=== PATIENT | male | born 1965 | race Caucasian/White ===

== ENCOUNTER 2020-03-31 11:11 | Inpatient (IN) | payer BC, OTHER ==
[~2020-03-31] VITALS: Ht 182.9 cm; Wt 93.6 kg
--- NOTE | 2020-03-31 11:21 | NUR ---
PT SITTING UP IN BED, BIB [facility] FOR INCREASED PAIN AND REDNESS TO OPEN SURGICAL WOUND ON LEFT POSTERIOR CALF. HOME HEALTH RN TOOK OFF WOUND VAC PRIOR TO TRANSPORT TO ED.
[2020-03-31] MEDS ORDERED: HYDROmorphone 1 MG/ML, 1ML INJ ONE ×2 (12:28→16:03)
[2020-03-31] MEDS: HYDROmorphone 1 MG/ML, 1ML INJ IVPush PRN ×2 (12:29→16:05)
[2020-03-31] MEDS ORDERED: SODIUM CHLORIDE FLUSH 10ML SYR IVF ONE (12:30)
--- NOTE | 2020-03-31 12:31 | NUR ---
IV START, LABS DRAWN, US AT BEDSIDE AT THIS TIME. PT MEDICATED PER EMAR.
[2020-03-31] MEDS ORDERED: OXYC5CAP2 PO (12:35)
[2020-03-31] MEDS ORDERED: XARELTO PO (12:35)
[2020-03-31 12:41] LABS: HCT (SEDRATE) 42.8 % (39.2-51.8)
[2020-03-31 12:42] LABS: BASOPHILS % (AUTO) 1 % (0-1); EOSINOPHILS % (AUTO) 2 % (1-7); LYMPHOCYTES % (AUTO) 16 % (22-44); MD NO; MEAN CORPUSCULAR HEMOGLOBIN 29.2 pg (27.5-34.5); MEAN CORPUSCULAR HGB CONC 33.5 g/dL (33.2-36.2); MEAN PLATELET VOLUME 7.9 fL (7.4-10.4); MONOCYTES % (AUTO) 10 % (2-9); NEUTROPHILS % (AUTO) 72 % (42-75); PLATELET COUNT 111 x10^3/uL (130-400); RED CELL DISTRIBUTION WIDTH 14.1 % (9.4-14.8)
[2020-03-31 12:52] LABS: ALBUMIN 3.8 g/dL (3.4-5.0); ANION GAP 3 mmol/L (5-15); CALCIUM 9.4 mg/dL (8.5-10.1); CHLORIDE 107 mmol/L (98-107); CREATININE 1.26 mg/dL (0.7-1.3)
--- NOTE | 2020-03-31 13:07 | NUR ---
HOB REPOSITIONED FOR PT COMFORT. BLANKETS PROPPING LEFT LEG. PT REPORTS SUSTAINED DECREASE IN LEFT LEG PAIN. LIGHTS REMAIN DIMMED FOLLOWING US. NAD NOTED AT THIS TIME. WOUND CONSULT PLACED IN CASE OF ADMISSION.
--- NOTE | 2020-03-31 14:02 | NUR ---
PT RESTING BACK IN BED, HOB ADJUSTED FOR PT COMFORT.
[2020-03-31] MEDS ORDERED: OMNIPAQUE 350 MG/ML, 150 ML BOTTLE ONE (14:45)
[2020-03-31] MEDS ORDERED: VANCOMYCIN PER PHARMACY MC PRN (15:00)
[2020-03-31] MEDS ORDERED: VANCOMYCIN 1,700 MG in SODIUM CHLORIDE 0.9% 250 ML IV ONE (15:00)
--- NOTE | 2020-03-31 15:03 | NUR ---
PT RESTING FLAT IN BED, PLEASANT WITH STAFF. NAD NOTED AT THIS TIME.
--- NOTE | 2020-03-31 15:46 | NUR ---
IVF INFUSING PER EMAR. NAD NOTED AT THIS TIME.
--- NOTE | 2020-03-31 16:12 | NUR ---
PT REPORTS DECREASE IN LEG PAIN FOLLOWING DILAUDID ADMINISTRATION. PT HOB REPOSITIONED FOR COMFORT. BLANKETS APPLIED. SIDE RAILS UP, CALL LIGHT IN REACH.
--- NOTE | 2020-03-31 17:24 | NUR ---
PT ABX COMPLETED INFUSING. PT REPORTS RELIEF FROM PAIN "IT'S AT THE NORMAL LEVEL NOW" PT RESTING WITH LIGHTS OFF IN ROOM. NAD NOTED. VSS. SIDE RAILS UP, CALL LIGHT IN REACH.
[2020-03-31] MEDS ORDERED: hydrALAzine 20 MG/ML, 1ML IVPush PRN (18:00)
[2020-03-31] MEDS ORDERED: ONDANSETRON 2MG/ML, 2ML IVPush PRN (18:00)
--- NOTE | 2020-03-31 18:10 | NUR ---
REPORT TO NOLAN PERSAUD.
[2020-03-31] MEDS ORDERED: HEPARIN 5,000 UNITS/ML, 1ML ONE (18:38)
[2020-03-31] MEDS: HEPARIN 5,000 UNITS/ML, 1ML SQ SCH (18:40)
--- NOTE | 2020-03-31 18:50 | NUR ---
PT REFUSED HOSPITAL BED AT THIS TIME
--- NOTE | 2020-03-31 20:02 | NUR ---
pt placed on 02 nc 2lpm, for low o2 sats. pt a&o x4.
--- NOTE | 2020-03-31 20:51 | NUR ---
report and care called to floor RN ARABELLA, and pt a&ox4, on cr monitor, ready for transport to floor.
[2020-03-31 21:56] VITALS: BP 127/81
[2020-03-31] MEDS: HYDROmorphone 2 MG/ML, 1ML IVPush PRN (22:00)
[2020-04-01] MEDS: HEPARIN 5,000 UNITS/ML, 1ML SQ SCH ×2 (02:10→08:44)
[2020-04-01 02:45] VITALS: BP 126/78
[2020-04-01] MEDS: OXYcodone IR 5MG TABLET PO PRN ×6 (02:47→19:29)
[2020-04-01 05:27] LABS: ANION GAP 9 mmol/L (5-15); CALCIUM 8.7 mg/dL (8.5-10.1); CHLORIDE 108 mmol/L (98-107); CREATININE 1.21 mg/dL (0.7-1.3)
[2020-04-01 05:35] LABS: BASOPHILS % (AUTO) 1 % (0-1); EOSINOPHILS % (AUTO) 2 % (1-7); LYMPHOCYTES % (AUTO) 21 % (22-44); MEAN CORPUSCULAR HEMOGLOBIN 29.4 pg (27.5-34.5); MEAN CORPUSCULAR HGB CONC 33.8 g/dL (33.2-36.2); MEAN PLATELET VOLUME 7.8 fL (7.4-10.4); MONOCYTES % (AUTO) 6 % (2-9); NEUTROPHILS % (AUTO) 71 % (42-75); PLATELET COUNT 106 x10^3/uL (130-400); RED BLOOD COUNT 4.35 x10^6/uL (4.38-5.82); RED CELL DISTRIBUTION WIDTH 13.9 % (9.4-14.8)
[2020-04-01 05:40] LABS: MD NO
[2020-04-01 07:25] VITALS: BP 121/70
[2020-04-01] MEDS: SENNA/DOCUSATE TABLET PO SCH (08:44)
[2020-04-01] MEDS: HYDROmorphone 2 MG/ML, 1ML IVPush PRN (08:44)
[2020-04-01] MEDS: VANCOMYCIN PER PHARMACY MC SCH (09:00)
[2020-04-01] MEDS ORDERED: LIDOCAINE 1%, 10ML INFIL ONE (09:30)
[2020-04-01] MEDS ORDERED: HEPARIN 5,000 UNITS/ML, 1ML IV ONE (13:00)
[2020-04-01 14:17] VITALS: BP 109/70
[2020-04-01] MEDS: HEPARIN 25,000 UNITS/250ML PMX 250 ML IV PRN (14:35)
[2020-04-01] MEDS ORDERED: PHARMACOKINETIC CONSULTATION MC ONE (16:00)
[2020-04-01] MEDS ORDERED: PHARMACOKINETIC MONITORING MC PRN (16:00)
[2020-04-01] MEDS: VANCOMYCIN 2,000 MG in SODIUM CHLORIDE 0.9% 500 ML IV SCH (16:49)
[2020-04-01 20:11] VITALS: BP 103/58
[2020-04-02] MEDS: HEPARIN 5,000 UNITS/ML, 1ML IV PRN ×3 (01:25→18:05)
[2020-04-02 01:29] VITALS: BP 106/63
[2020-04-02] MEDS: OXYcodone IR 5MG TABLET PO PRN ×3 (07:36→20:23)
[2020-04-02] MEDS: HYDROmorphone 2 MG/ML, 1ML IVPush PRN (08:43)
[2020-04-02] MEDS: SENNA/DOCUSATE TABLET PO SCH (08:46)
[2020-04-02] MEDS: VANCOMYCIN PER PHARMACY MC SCH (09:00)
[2020-04-02 09:05] VITALS: BP 111/64
[2020-04-02 09:30] LABS: BASOPHILS % (AUTO) 1 % (0-1); EOSINOPHILS % (AUTO) 3 % (1-7); LYMPHOCYTES % (AUTO) 20 % (22-44); MEAN CORPUSCULAR HEMOGLOBIN 29.4 pg (27.5-34.5); MEAN CORPUSCULAR HGB CONC 34.1 g/dL (33.2-36.2); MONOCYTES % (AUTO) 8 % (2-9); NEUTROPHILS % (AUTO) 69 % (42-75); PLATELET COUNT 110 x10^3/uL (130-400); RED BLOOD COUNT 4.23 x10^6/uL (4.38-5.82); RED CELL DISTRIBUTION WIDTH 14.4 % (9.4-14.8)
[2020-04-02 09:36] LABS: MD NO
[2020-04-02] MEDS: VANCOMYCIN 2,000 MG in SODIUM CHLORIDE 0.9% 500 ML IV SCH ×2 (10:10→22:27)
[2020-04-02] MEDS: HEPARIN 25,000 UNITS/250ML PMX 250 ML IV PRN ×2 (10:12→18:06)
[2020-04-02 12:39] VITALS: BP 122/78
[2020-04-02] MEDS: ACETAMINOPHEN 325 MG TABLET PO PRN (20:23)
[2020-04-02 21:14] VITALS: BP 111/63
[2020-04-03] MEDS: OXYcodone IR 5MG TABLET PO PRN ×3 (00:31→12:53)
[2020-04-03] MEDS: ACETAMINOPHEN 325 MG TABLET PO PRN ×3 (00:31→12:52)
[2020-04-03 01:41] VITALS: BP 109/72
[2020-04-03] MEDS: HEPARIN 25,000 UNITS/250ML PMX 250 ML IV PRN ×2 (03:07→12:00)
[2020-04-03] MEDS ORDERED: LACTATED RINGERS 1,000 ML IV SCH (07:00)
[2020-04-03 07:17] VITALS: BP 121/72
[2020-04-03] MEDS ORDERED: ONDANSETRON 2MG/ML, 2ML ONE (08:48)
[2020-04-03] MEDS ORDERED: PROPOFOL 10 MG/ML, 20ML ONE (08:48)
[2020-04-03] MEDS ORDERED: DEXAMETHASONE 4 MG/ML, 1ML ONE (08:48)
[2020-04-03] MEDS: VANCOMYCIN PER PHARMACY MC SCH (09:13)
[2020-04-03] MEDS: SENNA/DOCUSATE TABLET PO SCH (09:13)
[2020-04-03] MEDS: VANCOMYCIN 2,000 MG in SODIUM CHLORIDE 0.9% 500 ML IV SCH (10:43)
[2020-04-03 12:59] VITALS: BP 119/79
[2020-04-03] MEDS ORDERED: CHLORHEXIDINE 15 ML UDC ONE (15:13)
[2020-04-03] MEDS ORDERED: BUPIVACAINE/PF 0.5% ONE (18:21)
[2020-04-03] MEDS ORDERED: FENTANYL PF 250 MCG/5ML ONE (18:49)
[2020-04-03] MEDS ORDERED: MIDAZOLAM 1 MG/ML, 2ML ONE (18:49)
[2020-04-03] MEDS ORDERED: KETOROLAC 30 MG/1 ML ONE (19:03)
[2020-04-03] MEDS ORDERED: FENTANYL PF 100 MCG/2ML ONE (20:03)
[2020-04-03] MEDS ORDERED: OXYcodone 5 MG/5 ML ORAL.SOL UDC ONE (20:04)
[2020-04-03] MEDS: FENTANYL PF 100 MCG/2ML IV PRN ×2 (20:09→20:14)
[2020-04-03] MEDS ORDERED: OXYcodone 5 MG/5 ML ORAL.SOL UDC PO PRN (20:30)
[2020-04-03] MEDS ORDERED: HYDROmorphone 1 MG/ML, 1ML INJ IVPush PRN (20:30)
[2020-04-03] MEDS ORDERED: hydrALAzine 20 MG/ML, 1ML IV PRN (20:30)
[2020-04-03] MEDS ORDERED: PROMETHAZINE 25 MG/ML, 1ML IVPush PRN (20:30)
[2020-04-03] MEDS ORDERED: ONDANSETRON 2MG/ML, 2ML IVPush PRN (20:30)
[2020-04-03] MEDS ORDERED: LABETALOL 5MG/ML, 20ML IV PRN (20:30)
[2020-04-03] MEDS ORDERED: MEPERIDINE/PF 25MG/0.5ML IVPush PRN (20:30)
[2020-04-03 21:00] VITALS: BP 115/67
[2020-04-03] MEDS ORDERED: NALOXONE 0.4 MG/ML, 1ML IVPush PRN (22:30)
[2020-04-03] MEDS ORDERED: POTASSIUM CHLORIDE 20 MEQ in D5%-0.45% NACL 1,000 ML IV SCH (22:30)
[2020-04-03] MEDS ORDERED: KETOROLAC 30 MG/1 ML IV PRN (22:30)
[2020-04-04] MEDS: HEPARIN 5,000 UNITS/ML, 1ML IV PRN (00:03)
[2020-04-04 00:06] VITALS: BP 120/67
[2020-04-04 04:18] VITALS: BP 100/60
[2020-04-04] MEDS: HEPARIN 25,000 UNITS/250ML PMX 250 ML IV PRN ×2 (04:26→16:16)
[2020-04-04] MEDS ORDERED: POTASSIUM CHLORIDE 20 MEQ in D5%-0.45% NACL 1,000 ML IV SCH (05:00)
[2020-04-04] MEDS ORDERED: LORazepam 1MG TABLET PO PRN (05:00)
[2020-04-04] MEDS ORDERED: LORazepam 2 MG/ML, 1ML IV PRN (05:00)
[2020-04-04 06:23] VITALS: BP 113/70
[2020-04-04 07:19] LABS: BASOPHILS % (AUTO) 1 % (0-1); EOSINOPHILS % (AUTO) 0 % (1-7); LYMPHOCYTES % (AUTO) 12 % (22-44); MEAN CORPUSCULAR HEMOGLOBIN 29.6 pg (27.5-34.5); MEAN CORPUSCULAR HGB CONC 34.4 g/dL (33.2-36.2); MEAN PLATELET VOLUME 7.5 fL (7.4-10.4); MONOCYTES % (AUTO) 5 % (2-9); NEUTROPHILS % (AUTO) 83 % (42-75); PLATELET COUNT 149 x10^3/uL (130-400); RED BLOOD COUNT 4.12 x10^6/uL (4.38-5.82); RED CELL DISTRIBUTION WIDTH 13.9 % (9.4-14.8)
[2020-04-04 07:29] LABS: ANION GAP 6 mmol/L (5-15); CHLORIDE 105 mmol/L (98-107); CREATININE 1.12 mg/dL (0.7-1.3)
[2020-04-04 07:30] LABS: VANCOMYCIN,RANDOM 21.8 mcg/mL
[2020-04-04 07:56] LABS: MD SCAN
[2020-04-04] MEDS: VANCOMYCIN PER PHARMACY MC SCH (09:00)
[2020-04-04] MEDS: SENNA/DOCUSATE TABLET PO SCH (09:55)
[2020-04-04] MEDS ORDERED: VANCOMYCIN 1,900 MG in SODIUM CHLORIDE 0.9% 250 ML IV ONE (11:00)
[2020-04-04 14:42] VITALS: BP 112/62
[2020-04-04 18:43] VITALS: BP 124/76
[2020-04-05 00:39] VITALS: BP 123/68
[2020-04-05] MEDS: HEPARIN 25,000 UNITS/250ML PMX 250 ML IV PRN (05:26)
[2020-04-05 08:36] VITALS: BP 122/74
[2020-04-05] MEDS: VANCOMYCIN PER PHARMACY MC SCH (08:54)
[2020-04-05] MEDS: SENNA/DOCUSATE TABLET PO SCH (09:00)
[2020-04-05] MEDS: ONDANSETRON 2MG/ML, 2ML IV PRN (09:02)
[2020-04-05] MEDS ORDERED: HEPARIN 5,000 UNITS/ML, 1ML IV PRN (09:30)
[2020-04-05] MEDS: VANCOMYCIN 1,900 MG in SODIUM CHLORIDE 0.9% 250 ML IV SCH (10:51)
[2020-04-05] MEDS ORDERED: HEPARIN 25,000 UNITS/250ML PMX 250 ML IV PRN (11:00)
[2020-04-05] MEDS: HYDROmorphone 1 MG/ML, 1ML INJ IV PRN ×2 (12:58→14:03)
[2020-04-05] MEDS: METOCLOPRAMIDE 5 MG/ML, 2ML IVPush SCH ×2 (12:59→21:07)
[2020-04-05 15:45] VITALS: BP 113/64
[2020-04-05] MEDS: POLYETHYLENE GLYCOL 17 GM PACKET PO SCH ×3 (16:00→21:07)
[2020-04-05] MEDS: RIVAROXABAN 20 MG TABLET PO SCH (17:53)
[2020-04-05] MEDS: ACETAMINOPHEN 325 MG TABLET PO PRN (17:53)
[2020-04-05] MEDS: OXYcodone IR 5MG TABLET PO PRN (17:53)
[2020-04-05 18:33] VITALS: BP 114/71
[2020-04-06 01:20] VITALS: BP 116/69
[2020-04-06] MEDS: METOCLOPRAMIDE 5 MG/ML, 2ML IVPush SCH ×4 (02:44→21:29)
[2020-04-06 07:14] VITALS: BP 122/71
[2020-04-06] MEDS: POLYETHYLENE GLYCOL 17 GM PACKET PO SCH ×3 (09:00→21:00)
[2020-04-06] MEDS: VANCOMYCIN PER PHARMACY MC SCH (09:00)
[2020-04-06] MEDS: SENNA/DOCUSATE TABLET PO SCH (10:42)
[2020-04-06] MEDS: VANCOMYCIN 1,900 MG in SODIUM CHLORIDE 0.9% 250 ML IV SCH (10:42)
[2020-04-06] MEDS: ONDANSETRON 2MG/ML, 2ML IV PRN (10:51)
[2020-04-06] MEDS ORDERED: PROMETHAZINE 25 MG/ML, 1ML IM PRN (11:00)
[2020-04-06 13:46] VITALS: BP 127/75
[2020-04-06] MEDS: RIVAROXABAN 20 MG TABLET PO SCH (16:50)
[2020-04-06 20:17] VITALS: BP 147/80
[2020-04-07 02:55] VITALS: BP 127/64
[2020-04-07] MEDS: METOCLOPRAMIDE 5 MG/ML, 2ML IVPush SCH ×3 (03:35→16:03)
[2020-04-07 06:23] LABS: BASOPHILS % (AUTO) 1 % (0-1); EOSINOPHILS % (AUTO) 2 % (1-7); LYMPHOCYTES % (AUTO) 17 % (22-44); MEAN CORPUSCULAR HEMOGLOBIN 29.4 pg (27.5-34.5); MEAN CORPUSCULAR HGB CONC 33.8 g/dL (33.2-36.2); MEAN PLATELET VOLUME 7.1 fL (7.4-10.4); MONOCYTES % (AUTO) 10 % (2-9); NEUTROPHILS % (AUTO) 70 % (42-75); PLATELET COUNT 177 x10^3/uL (130-400); RED BLOOD COUNT 4.27 x10^6/uL (4.38-5.82); RED CELL DISTRIBUTION WIDTH 14.1 % (9.4-14.8)
[2020-04-07 06:30] LABS: CHLORIDE 108 mmol/L (98-107)
[2020-04-07 06:40] LABS: ALANINE AMINOTRANSFERASE 46 U/L (12-78); ALBUMIN 3.2 g/dL (3.4-5.0); ALKALINE PHOSPHATASE 112 U/L (45-117); ANION GAP 3 mmol/L (5-15); BILIRUBIN,TOTAL 0.5 mg/dL (0.2-1.0); CALCIUM 9.2 mg/dL (8.5-10.1); CREATININE 1.36 mg/dL (0.7-1.3); TOTAL PROTEIN 6.9 g/dL (6.4-8.2)
[2020-04-07 06:53] LABS: MD NO
[2020-04-07 07:58] VITALS: BP 126/73
[2020-04-07] MEDS: VANCOMYCIN PER PHARMACY MC SCH (07:58)
[2020-04-07] MEDS: POLYETHYLENE GLYCOL 17 GM PACKET PO SCH ×3 (07:58→19:35)
[2020-04-07] MEDS: SENNA/DOCUSATE TABLET PO SCH (07:58)
[2020-04-07] MEDS: OXYcodone IR 5MG TABLET PO PRN (10:45)
[2020-04-07] MEDS: HYDROmorphone 1 MG/ML, 1ML INJ IV PRN (11:01)
[2020-04-07] MEDS: DAPTOMYCIN 550 MG in SODIUM CHLORIDE 0.9% 100 ML IVPB SCH (11:54)
[2020-04-07] MEDS: SODIUM CHLORIDE 0.9% 1,000 ML IV SCH ×3 (11:55→19:52)
[2020-04-07 14:07] VITALS: BP 137/82
[2020-04-07] MEDS ORDERED: OXYC5CAP2 PO (15:44)
[2020-04-07] MEDS ORDERED: DAPT500V6 IV (15:44)
[2020-04-07] MEDS: RIVAROXABAN 20 MG TABLET PO SCH (16:03)
[2020-04-07 19:15] VITALS: BP 146/69
[2020-04-07] MEDS: ONDANSETRON 2MG/ML, 2ML IV PRN (19:31)
[2020-04-08 02:08] VITALS: BP 101/54
[2020-04-08 06:53] VITALS: BP 144/79
[2020-04-08] MEDS: SENNA/DOCUSATE TABLET PO SCH (08:03)
[2020-04-08] MEDS: POLYETHYLENE GLYCOL 17 GM PACKET PO SCH (08:05)
[2020-04-08] MEDS: DAPTOMYCIN 550 MG in SODIUM CHLORIDE 0.9% 100 ML IVPB SCH (08:59)
[2020-04-08] MEDS ORDERED: NICO-587 TD (11:07)
== END 2020-04-08 10:55 | disposition home health service (06) | DRG 580 ==
LOC: ED 15:01 → EDIP 15:02 → ED 15:15 → 4NE 21:36 → DCLOUNGE 04-08 10:40
PROVIDERS: ADMIT Hospitalist; ATTEND Hospitalist
PROC: 0KBT0ZZ Excision of Left Lower Leg Muscle, Open Approach (ICD-10-PCS; principal; 2020-04-03 16:00)
PROC: 02HV33Z Insertion of Infusion Device into Superior Vena Cava, Percutaneous Approach (ICD-10-PCS; 2020-04-07)
PROC: B548ZZA Ultrasonography of Superior Vena Cava, Guidance (ICD-10-PCS; 2020-04-07)
DX: L03.116 Cellulitis of left lower limb (principal); L97.229 Non-pressure chronic ulcer of left calf with unspecified severity; N17.9 Acute kidney failure, unspecified; D69.6 Thrombocytopenia, unspecified; F17.210 Nicotine dependence, cigarettes, uncomplicated; Z20.828 Contact with and (suspected) exposure to other viral communicable diseases; I10 Essential (primary) hypertension; K59.03 Drug induced constipation; M60.88 Other myositis, other site; T40.605A Adverse effect of unspecified narcotics, initial encounter; Z79.01 Long term (current) use of anticoagulants; Z85.528 Personal history of other malignant neoplasm of kidney; Z86.711 Personal history of pulmonary embolism; Z86.718 Personal history of other venous thrombosis and embolism; Z90.5 Acquired absence of kidney; Y92.89 Other specified places as the place of occurrence of the external cause; Z79.899 Other long term (current) drug therapy
CPT/HCPCS: 36415; 96372; 96374; 99285; S0020; 36573; 80048; 80053; 80202; 82040; 82550; 83735; 84100; 85025; 85520; 85651; 86140; 87040; 87070; 87075; 87077; 87205; 87635; 93922; G0378; J0878; J1100; J1170; J1644; J1885; J2250; J2270; J2405; J2704; J3010; J3370; J3480; Q9967; C1751; J2765; J7030; J7040; J7050; J7120

== ENCOUNTER 2020-11-26 21:25 | Inpatient (IN) | payer BC ==
[~2020-11-26] VITALS: Ht 182.9 cm; Wt 112.5 kg
[~2020-11-26 21:25] MED LIST: DAPT500V6 IV; NICO-587 TD; OXYC5CAP2 PO; XARELTO PO
--- NOTE | 2020-11-26 21:44 | NUR ---
CODE NEURO [email or web address] () [email or web address]@[phone]
[2020-11-26] MEDS ORDERED: OMNIPAQUE 350 MG/ML, 75ML BOTTLE ONE (21:54)
[2020-11-26 21:55] LABS: BASOPHILS % (AUTO) 1 % (0-1); EOSINOPHILS % (AUTO) 5 % (1-7); LYMPHOCYTES % (AUTO) 20 % (22-44); MEAN CORPUSCULAR HEMOGLOBIN 29.9 pg (27.5-34.5); MEAN CORPUSCULAR HGB CONC 33.3 g/dL (33.2-36.2); MEAN PLATELET VOLUME 7.6 fL (7.4-10.4); MONOCYTES % (AUTO) 7 % (2-9); NEUTROPHILS % (AUTO) 68 % (42-75); PLATELET COUNT 130 x10^3/uL (130-400); RED BLOOD COUNT 4.81 x10^6/uL (4.38-5.82); RED CELL DISTRIBUTION WIDTH 16.2 % (9.4-14.8)
[2020-11-26] MEDS ORDERED: RIVA20TA PO (21:59)
[2020-11-26] MEDS ORDERED: CIPR500T4 PO (21:59)
[2020-11-26] MEDS ORDERED: BUPR150T73 PO (21:59)
--- NOTE | 2020-11-26 22:03 | NUR ---
neuro tele consult initiated with pt at this time
[2020-11-26 22:09] LABS: ALANINE AMINOTRANSFERASE 29 U/L (12-78); ALBUMIN 3.1 g/dL (3.4-5.0); ANION GAP 2 mmol/L (5-15); CALCIUM 8.2 mg/dL (8.5-10.1); CHLORIDE 109 mmol/L (98-107); CREATININE 1.11 mg/dL (0.7-1.3)
--- NOTE | 2020-11-26 22:09 | NUR ---
NIH stroke scale of 1
[2020-11-26 22:13] LABS: INTERNATIONAL NORMALIZED RATIO 0.97 (0.93-1.1); PROTHROMBIN TIME 10.4 Seconds (9.6-11.5)
[2020-11-26 22:14] LABS: ALKALINE PHOSPHATASE 126 U/L (45-117); BILIRUBIN,TOTAL 0.3 mg/dL (0.2-1.0); TOTAL PROTEIN 6.6 g/dL (6.4-8.2); TROPONIN I < 0.015 ng/mL (0.000-0.045)
--- NOTE | 2020-11-26 22:42 | NUR ---
tele neuro doc does not recommend TPA
--- NOTE | 2020-11-26 22:59 | NUR ---
report to NOLAN gandara
[2020-11-26] MEDS ORDERED: ONDANSETRON ODT 4 MG PO PRN (23:30)
[2020-11-26] MEDS ORDERED: BISACODYL 10 MG SUPP PR PRN (23:30)
[2020-11-26] MEDS ORDERED: POLYETHYLENE GLYCOL 17 GM PACKET PO PRN (23:30)
[2020-11-26] MEDS ORDERED: SENNA/DOCUSATE TABLET PO PRN (23:30)
[2020-11-26] MEDS ORDERED: ACETAMINOPHEN 650 MG/20.3 ML UDC PO PRN (23:30)
[2020-11-26 23:40] VITALS: BP 130/84
[2020-11-27] MEDS: NICOTINE 14MG/24 HR PATCH.TD24 TD SCH ×2 (00:33→20:18)
[2020-11-27] MEDS: ATORVASTATIN 40 MG TABLET PO SCH ×2 (00:33→20:17)
[2020-11-27] MEDS: OXYcodone 5 MG/5 ML ORAL.SOL UDC PO PRN ×2 (00:39→04:54)
[2020-11-27 01:36] VITALS: BP 123/67
[2020-11-27 05:38] LABS: CHLORIDE 108 mmol/L (98-107)
[2020-11-27 05:49] LABS: ALANINE AMINOTRANSFERASE 29 U/L (12-78); ALBUMIN 3.1 g/dL (3.4-5.0); ALKALINE PHOSPHATASE 118 U/L (45-117); ANION GAP 3 mmol/L (5-15); BILIRUBIN,TOTAL 0.4 mg/dL (0.2-1.0); CALCIUM 8.6 mg/dL (8.5-10.1); CHOL/HDL RATIO 4.7; CHOLESTEROL, TOTAL 168 mg/dL (140-239); CREATININE 1.02 mg/dL (0.7-1.3); HDL CHOL % 21 % (26-37); HDL CHOLESTEROL (DIRECT) 36 mg/dL (40-60); LDL CHOLESTEROL,CALCULATED 106 mg/dL (54-169); LDL/HDL RATIO 2.9 (0.5-3.0); TOTAL PROTEIN 6.4 g/dL (6.4-8.2); TRIGLYCERIDES 130 mg/dL (50-200); VLDL CHOLESTEROL 26 mg/dL (0-25)
[2020-11-27 06:40] LABS: BASOPHILS % (AUTO) 1 % (0-1); EOSINOPHILS % (AUTO) 4 % (1-7); LYMPHOCYTES % (AUTO) 21 % (22-44); MEAN CORPUSCULAR HEMOGLOBIN 29.9 pg (27.5-34.5); MEAN CORPUSCULAR HGB CONC 33.5 g/dL (33.2-36.2); MEAN PLATELET VOLUME 7.8 fL (7.4-10.4); MONOCYTES % (AUTO) 7 % (2-9); NEUTROPHILS % (AUTO) 67 % (42-75); PLATELET COUNT 125 x10^3/uL (130-400); RED BLOOD COUNT 4.91 x10^6/uL (4.38-5.82); RED CELL DISTRIBUTION WIDTH 15.8 % (9.4-14.8)
[2020-11-27 06:43] VITALS: BP 125/78
[2020-11-27] MEDS: BUPROPION SR 150 MG TABLET PO SCH ×2 (08:39→20:17)
[2020-11-27] MEDS: ASPIRIN 81 MG TABLET CHEW PO/NG SCH (08:39)
[2020-11-27] MEDS: RIVAROXABAN 20 MG TABLET PO SCH (08:39)
[2020-11-27 12:27] VITALS: BP 129/77
[2020-11-27] MEDS ORDERED: GADOTERATE 7.5 MMOL/15ML SYR ONE (17:47)
[2020-11-27] MEDS ORDERED: GADOTERATE 10 MMOL/20ML SYR ONE (17:47)
[2020-11-27 17:55] VITALS: BP 117/73
[2020-11-27 19:06] VITALS: BP 135/81
[2020-11-27 20:00] VITALS: BP 131/81
[2020-11-28] VITALS (7 sets, daily range): BP systolic 125–132; BP diastolic 75–81
[2020-11-28] MEDS: BUPROPION SR 150 MG TABLET PO SCH (09:07)
[2020-11-28] MEDS: RIVAROXABAN 20 MG TABLET PO SCH (09:07)
[2020-11-28] MEDS: ASPIRIN 81 MG TABLET CHEW PO/NG SCH (09:07)
[2020-11-28] MEDS ORDERED: ASPI-963 PO/NG (13:41)
[2020-11-28] MEDS ORDERED: ATOR40TA78 PO (13:41)
== END 2020-11-28 16:31 | disposition home or self-care (01) | DRG 65 ==
LOC: ED 21:55 → EDIP 22:52 → 4EST 23:30
PROVIDERS: ADMIT Internal Medicine; ATTEND Internal Medicine
DX: I63.9 Cerebral infarction, unspecified (principal); G81.91 Hemiplegia, unspecified affecting right dominant side; I10 Essential (primary) hypertension; R29.703 NIHSS score 3; F17.210 Nicotine dependence, cigarettes, uncomplicated; Z85.528 Personal history of other malignant neoplasm of kidney; Z86.711 Personal history of pulmonary embolism; Z86.718 Personal history of other venous thrombosis and embolism; Z79.01 Long term (current) use of anticoagulants; Z90.5 Acquired absence of kidney
CPT/HCPCS: 36415; 70450; 70496; 70498; 70553; 71045; 80047; 80053; 80061; 84484; 85025; 85610; 85730; 93005; 93306; 93356; G0378; Q9967; 92523-GN; A9575